=== PATIENT | female | born 2000 | race Caucasian/White ===

== ENCOUNTER 2020-07-21 08:16 | Day surgery (SDC) | payer OTHER ==
[2020-07-21 08:31] LABS: Specific Gravity >= 1.030 (1.005-1.030)
[2020-07-21] MEDS ORDERED: Mastisol Adhesive Liq ONE (09:06)
[2020-07-21] MEDS ORDERED: LIDOCAINE 1% W/EPI 1:100,000 MDV 20 ML VIAL ONE (09:06)
[2020-07-21] MEDS ORDERED: BACITRACIN 50000 UNIT VIAL ONE (09:06)
[2020-07-21] MEDS ORDERED: NS 0.9% VIAL 40 ML ONE (09:06)
[2020-07-21] MEDS ORDERED: GENTAMICIN SULF 80 MG/2ML INJ ONE (09:06)
[2020-07-21] MEDS ORDERED: CEFAZOLIN SODIUM 1 GM/VIAL ONE ×2 (09:06→15:01)
[2020-07-21] MEDS ORDERED: Ringers Lactate 1,000 ML IV ONE ×4 (09:09→12:19)
[2020-07-21] MEDS ORDERED: SCOPOLAMINE HYDROBROMIDE PATCH TD ONE ×2 (09:30→09:45)
[2020-07-21] MEDS ORDERED: CEFAZOLIN/SWI 1gm 1 GM/10 ML SYR ONE (09:51)
[2020-07-21] MEDS ORDERED: MIDAZOLAM HCL 2 MG/2 ML INJ ONE (10:53)
[2020-07-21] MEDS ORDERED: propofoL 200 MG/20 ML VIAL IV ONE (10:53)
[2020-07-21] MEDS ORDERED: ROCURONIUM 50 MG/5 ML VIAL IV ONE (10:54)
[2020-07-21] MEDS ORDERED: ONDANSETRON 4 MG/2 ML VIAL ONE ×3 (10:54→17:16)
[2020-07-21] MEDS ORDERED: LIDOCAINE 2% MPF 5 ML VIAL ONE (10:54)
[2020-07-21] MEDS ORDERED: dexAMETHasone 10 MG/ML VIAL ONE (10:54)
[2020-07-21] MEDS ORDERED: FENTANYL CITR 100 MCG/2 ML ONE (10:54)
[2020-07-21] MEDS ORDERED: KETOROLAC 30 MG/ML INJ ONE ×2 (10:54→16:51)
[2020-07-21] MEDS ORDERED: FENTANYL CITR 250 MCG/5 ML ONE (12:25)
[2020-07-21] MEDS ORDERED: NS 0.9% VIAL 10 ML ONE ×2 (13:01→15:01)
[2020-07-21] MEDS ORDERED: VECURONIUM 10 MG/VIAL IV ONE (13:16)
[2020-07-21] MEDS ORDERED: KETAMINE HCL 500 MG/5 ML VIAL ONE (15:34)
[2020-07-21] MEDS ORDERED: NEOSTIGMINE 1 MG/ML -5 ML ONE (15:45)
[2020-07-21] MEDS ORDERED: GLYCOPYRROLATE 0.2 MG/ML SYR ONE (15:45)
[2020-07-21] MEDS: HYDROMORPHONE HCL 1 MG/ML INJ ONE ×2 (16:34→16:44)
[2020-07-21 17:34] VITALS: TEMP 97.1; O2SAT 97
[2020-07-21] MEDS ORDERED: HYDROCODONE/APAP 7.5/325 MG TAB PO ONE (17:40)
[2020-07-21] MEDS ORDERED: HYDROCODONE/APAP 7.5/325 MG TAB ONE (17:57)
[2020-07-21] MEDS ORDERED: METOCLOPRAMIDE 10 MG/2mL INJ IV ONE (18:20)
[2020-07-21] MEDS ORDERED: METOCLOPRAMIDE 10 MG/2mL INJ ONE (18:31)
[2020-07-21] MEDS ORDERED: PROMETHAZINE INJ 25 MG/ML AMP ONE (18:31)
[2020-07-21 18:42] VITALS: BP 100/55
--- NOTE | 2020-07-24 11:41 | OP ---
Surgeon: All Gilbert MD Preoperative Diagnosis: Breast asymmetry, enlargement. Postoperative Diagnosis: Breast asymmetry, enlargement. Procedure Performed: Left breast reduction Anesthesia: General. Description Of Procedure: After satisfactory induction of general anesthesia the chest was preped. the skin was de-epithelialized with a dermabrader after incision made with 15 blade. The left side had a 45 mm template used to outline the areola and then a transverse curvilinear incision was made. Intervening skin was de-epithelized with dermabrader or EpiCut. The right side was approached first. Electrocautery was used to dissect and straps were elevated from the right areola at the 12 o'clock and 3 o'clock position. The straps were approximately 20 cm long, approximately 0.5 cm wide. The straps were cut off. Then, the dissection proceeded down at the 3 o'clock and 12 o'clock position down to the pectoralis major muscle. After this was done, a pursestring of the Maximino needle 2-0 [place]-Alexandru was placed and then the femoral straps were later attached to the tissue surrounding the [place]-Alexandru suture after both straps passed through the pectoral muscle and tied to themselves with 2-0 Ethibond. This was done at 12 o'clock and 3 o'clock position elevating the breast higher and more medial. Then, the wound was closed with interrupted 4-0 PDS followed by 4-0 PDS running subcuticular. The left side then had the flap elevated about 1.5 cm thickness and elevated towards the sternum, clavicle, and anterior axillary line. Then, the lateral incision was made as well. Left pectoral dissection was done. The patient had a large amount of excess tissue of the breast that required extensive resection. Approximately 4 to 6 g were removed totally from the left side because of the severe asymmetry. After this was done, then the inferior incision was made. The conization performed with 2-0 PDS suture. straps were elevated at the 12 o'clock and 9 o'clock and 10:30 position. The straps were then woven in and out the pectoralis muscle back to the base of the cone, back to the pectoral muscle, back to the base of the cone, tied themselves with 2-0 PDS sutures. This was done for the 12 o'clock and the 9 ocoock strap was sewn over the sternum at the 9 o'clock position with 2-0 Ethibond. The wound was irrigated with antibiotic solution was placed for hemostasis. The wound was carefully stapled shut. The patient was sat up. The dog ears medial and lateral were marked out. They were excised and then the wound was closed after 10 DEEPAK was brought out to the axilla, sewn in place with 2-0 silk. Layers closed with 3-0 Vicryl, subcu 3-0 PDS running subcuticular tied in the vertical meridian breast. The patient was sat up. The right nipple-areolar complex was fixed position. We then matched the left with fat. The tissue was cored out with a 42 mm template and nipple-areolar complex was sewn with interrupted 4-0 PDS followed by 4-0 PDS running subcuticular. Dressings consisted of tincture of benzoin, Steri-Strips followed by Esmarch, fluffs, and Dwayne wrap. The patient tolerated the procedure well, returned to recovery. tissue removed from the right breast was minimal, approximately 10 g. AURORA/JAYLAN Voice ID: [id number] Report ID: [id number] [facility]
== END 2020-07-21 18:57 | disposition home or self-care (01) ==
LOC: OR 08:16
PROVIDERS: ATTEND Specialist
PROC: 0HBV0ZZ Excision of Bilateral Breast, Open Approach (ICD-10-PCS; principal; 2020-07-21 11:30)
DX: N64.89 Other specified disorders of breast (principal); N64.81 Ptosis of breast; N62 Hypertrophy of breast; Z20.828 Contact with and (suspected) exposure to other viral communicable diseases
CPT/HCPCS: 81025; 88305; 19318; J2704; J2765 ×2; J2550; J1580; J2250; J3010 ×2; J1100; J1170; J2710; J0690 ×3; J7120 ×3; J2405 ×3

== ENCOUNTER → 2021-03-16 | Day surgery (SDC) | payer OTHER ==
[~2021-03-16] MED LIST: BACITRACIN 50000 UNIT VIAL ONE; CEFAZOLIN/SWI 1gm 1 GM/10 ML SYR ONE; FENTANYL CITR 100 MCG/2 ML ONE; FENTANYL CITR 250 MCG/5 ML ONE; GENTAMICIN SULF 80 MG/2ML INJ ONE; GLYCOPYRROLATE 0.2 MG/ML SYR ONE; HYDROMORPHONE HCL 1 MG/ML INJ ONE; LIDOCAINE 2% MPF 5 ML VIAL ONE; MIDAZOLAM HCL 2 MG/2 ML INJ ONE; Mastisol Adhesive Liq ONE; NS 0.9% VIAL 10 ML ONE; ONDANSETRON 4 MG/2 ML VIAL ONE; PROMETHAZINE INJ 25 MG/ML AMP ONE; ROCURONIUM 50 MG/5 ML VIAL IV ONE; Ringers Lactate 1,000 ML IV ONE; SCOPOLAMINE HYDROBROMIDE PATCH TD ONE; propofoL 200 MG/20 ML VIAL IV ONE
[2021-03-16 11:51] LABS: Specific Gravity 1.025 (1.005-1.030)
[2021-03-16 17:08] VITALS: BP 112/59; TEMP 97.4; O2SAT 97
--- NOTE | 2021-03-16 19:12 | OP ---
Surgeon: All Gilbert MD Preoperative Diagnosis: Scar of the left breast, enlargement of the right. Postoperative Diagnosis: Scar of the left breast, enlargement of the right. Procedure: Scar revision, left breast; mastopexy, right. Anesthesia: General. Procedure In Detail: After satisfactory induction of general anesthesia, chest was prepped with Dura Prep. Dry sterile drapes were applied in usual manner. Left side was approached first. The skin to be excised was already outlined. subcutaneous tissue. The wound was then closed with 3- 0 Vicryl and then 3-0 PDS running subcuticular from lateral to medial and medial to lateral, tied in the vertical meridian of breast. Left side was done and a 5 cm diameter template was used to outline the right areola. Then a concentric ely [place], 2 cm outlined. The zigzag incision was made around the areola. Then, a scalpel was used to incise the outer incision partial thickness and then dermabrader was used. spiral straps were outlined with a marking pen 5 mm thick and the straps were elevated with a scalpel. Straps were elevated at 12 o'clock and 9 o'clock position. The breast was dissected at the incision down to the fascia near the clavicle, the sternum in feriorly and laterally. Retropectoral space was opened with electrocautery and then the 12 o'clock s trap was woven from 12 o'clock position through the breast vertically. Then outer breast cephalad. The looped through pec major muscle, then looped through the previous strap. Then brought out in the 9 o'clock position. The 3 o'clock strap, which was medial was then passed from medial to lateral, l ateral back to medial and passed through the pectoralis major muscle, back to pectoralis muscle, loop ed through the medial strap at the 3 o'clock and back retropectorally. The medial strap was then pas sed out of the pectoral major fascia muscle and looped through the 6 o'clock strap, tied to itself wi th 2-0 PDS suture. The 12 o'clock strap was then passed prepectorally through the pectoralis major m uscle, then looped through the strap at the 9 o'clock position, tied to itself with a 2-0 PDS suture. Wound was temporarily stapled shut sat up. The wounds look identical except for extra fullness. A scalpel was used to excise additional tissue. Total amount removed from the right breast was 100 g, left breast was 6 g. The wound was then closed with a pursestring of 2-0 [place]-Alexandru and then 4-0 PDS interrupted and 4-0 PDS running subcuticular. Dressings consisted of tincture of benzoin, Steri-Stri ps, followed by Esmarch, fluffs, and Dwayne wrap. The patient tolerated procedure well, returned to Rec overy. AURORA/JAYLAN Voice ID: [id number] Report ID: [id number]
== END ==
LOC: OR 11:03
PROVIDERS: ATTEND Specialist
PROC: 0HB5XZZ Excision of Chest Skin, External Approach (ICD-10-PCS; principal; 2021-03-16 12:30)
PROC: 0HQV0ZZ Repair Bilateral Breast, Open Approach (ICD-10-PCS; 2021-03-16 12:30)
DX: N64.81 Ptosis of breast (principal); L90.5 Scar conditions and fibrosis of skin
CPT/HCPCS: 11406; 19316; 81025; 88305; J2704; J2550; J1580; J2250; J3010 ×3; J1170; J0690 ×2; J7120 ×2; J2405 ×2